=== PATIENT | male | born 1965 | race Two or more races ===

== ENCOUNTER 2024-06-02 10:05 | Day surgery (SDC) | payer MEDICAID, SELFPAY ==
--- NOTE | 2024-06-01 07:00 | EKG_ITS ---
[facility] Test Date: 2024-06-01 Pat Name: YANET LATIF Department: Room: - Gender: Male Asset Administrator: CATHIE : 1965 Requested By: Shea Shrestha Order Number: [id number] Reading MD: Shea Shrestha Measurements Intervals [place] Rate: 57 P: 61 TN: 145 QRS: 71 QRSD: 81 T: 53 QT: 385 QTc: 376 Interpretive Statements SINUS BRADYCARDIA No previous ECG available for comparison /store/S0/[id number]/[id number].pdf
[2024-06-01 09:54] VITALS: BMI 29.1
[2024-06-01 10:49] LABS: Basophils # (Auto) 0.1 Thou/mm3 (0.0-0.2); Basophils % (Auto) 1 % (0-2.5); Eosinophils # (Auto) 0.1 Thou/mm3 (0.0-0.5); Eosinophils % (Auto) 1 % (0-10); Hematocrit 49.9 % (41.0-53.0); Hemoglobin 16.9 g/dL (13.5-16.0); Immature Granulocytes % (Auto) 0 % (0-0); Immature Granulocytes Auto 0.02 Thou/mm3 (0.00-0.00); Lymphocytes # (Auto) 2.1 Thou/mm3 (1.0-4.8); Lymphocytes % (Auto) 32 % (10-50); Mean Corpuscular HGB Conc 33.9 g/dl (31.0-37.0); Mean Corpuscular Hemoglobin 30.7 pg (25.0-35.0); Mean Corpuscular Volume 91 fL (80-100); Monocytes # (Auto) 0.4 Thou/mm3 (0.0-0.8); Monocytes % (Auto) 6 % (0-12); Neutrophils # (Auto) 3.8 Thou/mm3 (1.8-7.7); Neutrophils % (Auto) 60 % (37-80); Nucleated Red Blood Cell % 0 /100 WBC (0); Platelet Count 225 Thou/mm3 (140-440); RDW Standard Deviation 42.3 fL (35.1-43.9); Red Blood Count 5.51 Miln/mm3 (4.50-5.90); White Blood Count 6.4 Thou/mm3 (3.8-10.6)
[2024-06-01 11:05] LABS: Alanine Aminotransferase 34 U/L (10-49); Albumin, Serum 5.3 gm/dL (3.4-4.8); Albumin/Globulin Ratio 1.9 (1.2-2.2); Alkaline Phosphatase 58 U/L (46-116); Anion Gap 10 (7-16); Aspartate Amino Transferase 24 U/L (0-34); BUN/Creatinine Ratio 11 Ratio (12-20); Bilirubin,Total 0.7 mg/dL (0.3-1.2); Blood Urea Nitrogen 13 mg/dL (9-23); Calcium 10.2 mg/dL (8.3-10.6); Calcium (Corrected) 10.2 mg/dL (8.5-10.1); Carbon Dioxide 28.4 mMol/L (20.0-31.0); Chloride 102 mMol/L (98-107); Creatinine (Component) 1.2 mg/dL (0.6-1.3); Globulin 2.8 gm/dL (2.3-3.5); Glucose 100 mg/dL (74-106); Osmolality,Calculated 279 (275-295); Potassium 4.4 mMol/L (3.4-5.1); Sodium 140 mMol/L (136-145); Total Protein 8.1 gm/dL (5.7-8.2); eGFR > 60 See Note
[2024-06-02] VITALS (9 sets, daily range): BP systolic 127–134; BP diastolic 65–76; PULSE 68–79; RESP 12–18; TEMP 36.2–36.6; O2SAT 97–99; BMI 28.9
--- NOTE | 2024-06-02 10:20 | CHAP ---
Visited briefly with patient giving encouragement and prayer.
--- NOTE | 2024-06-02 12:33 | PD.SUROPNT ---
Date of Procedure 06/02/24 Pre Op Diagnosis Incarcerated umbilical hernia Post Op Diagnosis Incarcerated umbilical hernia Procedure Primary repair of incarcerated umbilical hernia Findings An approximately 1 cm umbilical hernia defect with incarcerated preperitoneal fat Procedure Description Patient brought into the operating room in supine position. After administration of general endotracheal anesthesia, patient's abdomen prepped and draped in standard surgical manner. Local anesthesia was administered. 3 cm semicircular incision was made below the umbilicus and dissection was deepened into soft tissue. The umbilicus was detached from anterior abdominal fascia. The hernia sac was identified and circumferentially dissected off surrounding tissue. The sac was opened, the contents were incarcerated preperitoneal fat that were reduced. The hernia sac was excised. The defect was approximately 1 cm in diameter, I elected to primarily repair the defect. The defect was primarily repaired with simple interrupted sutures using 0 Prolene. Umbilicus was reattached into anterior abdominal fascia. Soft tissue reapproximated with interrupted sutures using 2-0 Vicryl and the incision was closed with 4-0 Monocryl in subcuticular fashion. Dermabond applied. Patient tolerated procedure well. He was extubated, breathing spontaneously and without difficulty and was transferred to postanesthesia care in stable condition. Instruments, needles and sponge counts were reported to be correct x 2. Anesthesia GETA and local Pathology / specimen Other (Hernia sac) Estimated Blood Loss 5 Condition Stable Disposition PACU Surgeon Shea Shrestha MD Surgical Staff Operation Date: 06/02/24 13:15 <No data on this case meets the specified criteria>
--- NOTE | 2024-06-02 12:35 | SUR.PHASEI ---
pt received from OR in recovery bay 5. pt asleep but responds to voice, breathing unlabored on room air. v/s stable. pt dressing to abd dermabond x1 cdi. report received Amanuel ALLAN and Dr. Mckenzie.
--- NOTE | 2024-06-02 13:27 | SUR.PHASEII ---
pt able to tolerate oral fluids without difficulty swallowing or nausea/vomiting.
--- NOTE | 2024-06-02 14:05 | SUR.PHASEII ---
pt awake and alert, breathing unlabored on room air. v/s stable. pt dressing to lower abd cdi. pt able to ambulate to wheelchair with steady gait. d/c instructions given with in room using [employer] peter mohan, all questions answered. pt d/c via wheelchair with all belongings.
== END 2024-06-02 14:05 | disposition home or self-care (01) ==
PROVIDERS: Anesthesiology; PCP Family Medicine; Referring Provider Surgery; Visit Provider Surgery
PROC: (CPT 49592; principal; 2024-06-02 13:00)
DX: K42.0 Umbilical hernia with obstruction, without gangrene (principal); Z01.810 Encounter for preprocedural cardiovascular examination
CPT/HCPCS: 49592; 36415; 80053; 85025; 93005; A4217; A4649; J0690; J1100; J2704; J2765; J3010; J3490